=== PATIENT | male | born 1980 | race Two or more races ===

== ENCOUNTER 2024-04-08 17:20 | Inpatient (IN) | payer OTHER ==
[~2024-04-08] VITALS: Ht 172.7 cm; Wt 77.0 kg
[2024-04-08 19:27] LABS: BASOPHILS % (AUTO) 0.2 % (0.0-2.0); EOSINOPHILS % (AUTO) 0 % (1.0-6.0); HEMATOCRIT 38.2 % (41-53); HEMOGLOBIN 13.4 g/dL (13.5-17.5); LYMPHOCYTES # (AUTO) 0.9 K/uL (1.0-4.8); MEAN CORPUSCULAR VOLUME 97 fL (80-100); MONOCYTES # (AUTO) 0.7 K/uL (0.1-1.0); MONOCYTES % (AUTO) 5.9 % (2.0-9.0); NEUTROPHILS # (AUTO) 9.7 K/uL (1.8-7.7); PLATELET COUNT (AUTO) 219 K/uL (150-450); RED BLOOD CELL COUNT(AUTO) 3.94 MIL/uL (4.50-5.90); RED CELL DISTRIBUTION WIDTH 13.2 % (11.5-14.5); WHITE BLOOD COUNT (AUTO) 11.3 K/uL (4.5-11.0)
[2024-04-08 19:28] LABS: NEUTROPHILS % (AUTO) 85.9 % (40.0-70.0)
[2024-04-08 19:32] LABS: ANION GAP 12 mmol/L (8-16); CALCIUM, TOTAL 8.3 mg/dL (8.8-10.5); CARBON DIOXIDE 23 mmol/L (22-29); CHLORIDE 101 mmol/L (98-107); CREATININE 0.89 mg/dL (0.60-1.30); GLOMERULAR FILTR. RATE CALC > 60 mL/min (>60); GLUCOSE,RANDOM 102 mg/dL (70-110); POTASSIUM 3.8 mmol/L (3.5-5.1); SODIUM SERUM 136 mmol/L (136-145); UREA NITROGEN, BLOOD 17 mg/dL (7-18)
[2024-04-08 19:33] LABS: COVID AG,FIA SOURCE NASAL SWAB
[2024-04-08 19:39] LABS: ALCOHOL, BLOOD (SERUM) < 3 mg/dL (0-10)
[2024-04-08 19:54] LABS: SARS-COV2 (COVID) ANTIGEN,FIA Negative (Negative)
[2024-04-08 23:12] LABS: PH,URINE DRUG SCREEN 5.5 (5.0-8.0)
[2024-04-08 23:18] LABS: ALCOHOL, URINE DRUG SCREEN NEGATIVE (NEGATIVE); AMPHET/METH SCREEN,URINE POSITIVE (NEGATIVE); BARBITURATE SCREEN, URINE NEGATIVE (NEGATIVE); BENZODIAZEPINES SCREEN,URINE NEGATIVE (NEGATIVE); CANNABINOID SCREEN,URINE NEGATIVE (NEGATIVE); COCAINE SCREEN,URINE NEGATIVE (NEGATIVE); METHADONE SCREEN, URINE NEGATIVE (NEGATIVE); OPIATE SCREEN,URINE NEGATIVE (NEGATIVE); PHENCYCLIDINE SCREEN,URINE NEGATIVE (NEGATIVE)
[2024-04-09 01:50] VITALS: BP 116/71; PULSE 72; RESP 18; TEMP 98; O2SAT 100
[2024-04-09 05:19] VITALS: BP 113/67; PULSE 76; RESP 18; TEMP 98.1; O2SAT 100
[2024-04-09 08:29] VITALS: BP 115/64; PULSE 75; RESP 20; TEMP 97.9; O2SAT 100
[2024-04-09 18:46] VITALS: BP 117/68; PULSE 71; RESP 18; TEMP 97.9; O2SAT 97
[2024-04-09] MEDS: ONDANSETRON HCL 4 MG/2 ML VIAL IVP PRN (19:01)
[2024-04-09 19:33] VITALS: BP 110/68; PULSE 74; RESP 18; TEMP 97.9; O2SAT 98
[2024-04-09] MEDS: OLANZapine 5 MG TABLET PO SCH (20:44)
[2024-04-10 04:13] VITALS: BP 119/72; PULSE 69; RESP 18; TEMP 97.6; O2SAT 100
[2024-04-10 08:24] VITALS: BP 99/53; PULSE 57; RESP 19; TEMP 97.6; O2SAT 99
[2024-04-10 15:43] VITALS: BP 120/74; PULSE 58; RESP 18; TEMP 97.8; O2SAT 98
[2024-04-10 19:19] VITALS: BP 113/65; PULSE 69; RESP 18; TEMP 98.2; O2SAT 98
[2024-04-10] MEDS: GuaiFENesin/D-METHORPHAN [SUGAR-FREE] 200-20MG/10 ML SYRUP UDCUP PO PRN (21:59)
[2024-04-11 04:41] VITALS: BP 106/68; PULSE 62; RESP 18; TEMP 98.3; O2SAT 99
[2024-04-11 07:54] VITALS: BP 107/69; PULSE 69; RESP 18; TEMP 98.5; O2SAT 94
[2024-04-11 19:31] VITALS: BP 116/84; PULSE 72; RESP 20; TEMP 98.2; O2SAT 97
[2024-04-11] MEDS: IBUPROFEN 400 MG TABLET PO PRN (21:20)
[2024-04-12 04:54] VITALS: BP 113/72; PULSE 57; RESP 18; TEMP 97.8; O2SAT 97
[2024-04-12 08:42] VITALS: BP 116/71; PULSE 61; RESP 18; TEMP 98.5; O2SAT 99
[2024-04-12 19:28] VITALS: BP 117/66; PULSE 75; RESP 18; TEMP 98.6; O2SAT 95
[2024-04-13 05:12] VITALS: BP 113/78; PULSE 62; RESP 18; TEMP 98.6; O2SAT 98
[2024-04-13 07:58] VITALS: BP 117/72; PULSE 74; RESP 18; TEMP 98.1; O2SAT 98
[2024-04-13] MEDS ORDERED: OLAN5TAB52 PO (13:31)
== END 2024-04-13 15:25 | DRG 885 ==
LOC: EMS 17:20 → EDH 04-09 00:47 → 6S 04-09 01:36
PROVIDERS: ADMIT Internal Medicine; ATTEND Internal Medicine
DX: F20.0 Paranoid schizophrenia (principal); Z20.822 Contact with and (suspected) exposure to COVID-19; F15.90 Other stimulant use, unspecified, uncomplicated; Z87.891 Personal history of nicotine dependence
CPT/HCPCS: 80048; 80307; 85025; 99285; G0480; J2405